=== PATIENT | female | born 1960 | race Hispanic/Latino ===

== ENCOUNTER 2017-02-25 12:40 | Emergency (ER) | payer OTHER ==
[2017-02-25 12:40] VITALS: BMI 37.8
[2017-02-25 12:49] VITALS: RESP 18; TEMP 98.2; O2SAT 98
[2017-02-25] MEDS ORDERED: Bacitracin 500 Units/gm Oint Foilpak UD TOP ONE (13:23)
[2017-02-25] MEDS ORDERED: Bacitracin 500 Units/gm Oint Foilpak UD ONE (13:31)
--- NOTE | 2017-02-25 13:49 | C.PDOC ---
History Of Present Illness 56 yr old female presents to the ER stating this morning while cleaning her bathroom, she was scratched by her personal cat. Patient states the cat is UTD on all immunizations. Patient reports of multiple scratches to the right forearm , palm and dorsal aspect of the right hand. Patient denies nausea, vomiting, weakness or numbness. no fever. 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 Gastrointestinal: Negative for: Nausea, Vomiting Skin: Positive for: Other (multiple scratches to the right forearm, palm and dorsum aspect of the hand) Neurological: Negative for: Weakness, Numbness Physical Exam - Physical Exam Appears: Well, Non-toxic, No Acute Distress Skin: Warm, Dry, Other (Multiple scratches to the right distal forearm, ulnar surface. Few scratches to the right palm distal to pinky, and few on dorsum of the hand. 1 scratch on the dorsal surface, proximal phalanx of second right finger, with mild swelling. ) Head: Atraumatic, Normacephalic Extremity: Normal ROM, Capillary Refill (<2) Neurological/Psych: Oriented x3, Normal Speech, Normal Motor, Normal Sensation, Normal Reflexes ED Course And Treatment O2 Sat by Pulse Oximetry: 98 Progress Note: Patient is brought UTD on Tetanus. Scratches treated with Bacitracin. Medical Decision Making Medical Decision Making: PLAN: * Bacitracin TOP * Tetanus IM * pt taking levaquin for uri from pmd, until th. will add bactrim to cover bartonella. Disposition Counseled Patient/Family Regarding: Diagnosis, Need For Followup, Rx Given - Disposition Disposition: HOME/ ROUTINE Disposition Time: 14:18 Condition: STABLE Additional Instructions: Keep wounds clean and dry. Wash daily with soap and water., then apply antibiotic ointment. Follow up with your PMD in a few days. Return to ER for fever, increasing redness, red streaks up arm, worse pain or any other concerns. Prescriptions: Sulfamethoxazole/Trimethoprim [Bactrim DS 800 mg-160 mg] 1 tab PO BID #14 tab Instructions: Cat Scratch Disease (ED) Forms: General Discharge Instructions - Clinical Impression Clinical Impression: Cat scratch of right hand - PA / MATERIALS SUPERVISOR / Resident Statement MD/DO has reviewed & agrees with the documentation as recorded. - Scribe Statement The provider has reviewed the documentation as recorded by the Scribtammie Hope All medical record entries made by the Ravinderibtammie were at my direction and personally dictated by me. I have reviewed the chart and agree that the record accurately reflects my personal performance of the history, physical exam, medical decision making, and the department course for this patient. I have also personally directed, reviewed, and agree with the discharge instructions and disposition.
[2017-02-25 14:24] VITALS: BP 126/75; PULSE 75
== END 2017-02-25 14:26 | disposition home or self-care (01) ==
LOC: C.ER 12:40
DX: S50.811A Abrasion of right forearm, initial encounter (principal); S60.511A Abrasion of right hand, initial encounter; S60.410A Abrasion of right index finger, initial encounter; W55.03XA Scratched by cat, initial encounter